=== PATIENT | male | born 1970 | race Caucasian/White ===

== ENCOUNTER 2017-02-27 19:20 | Emergency (ER) | payer OTHER ==
[~2017-02-27] VITALS: Ht 157.5 cm; Wt 121.2 kg
[2017-02-27] MEDS ORDERED: PRED FORTE100 DROP/5 RIGHT EYE (21:01)
[2017-02-27 21:35] VITALS: BP 160/89
== END 2017-02-27 21:36 | disposition home or self-care (01) ==
LOC: EME 19:20
DX: H20.9 Unspecified iridocyclitis (principal); F17.200 Nicotine dependence, unspecified, uncomplicated
CPT/HCPCS: 99281; 99283